=== PATIENT | male | born 1990 | race African-American/Black ===

== ENCOUNTER 2017-01-07 14:08 | Emergency (ER) | payer SELFPAY ==
[~2017-01-07] VITALS: Ht 172.7 cm; Wt 70.0 kg
[2017-01-07] MEDS ORDERED: TETANUS, DIPHTHERIA, PERTUSSIS VAC/PF 0.5ML (>7YR OLD) IM ONE (14:45)
[2017-01-07] MEDS ORDERED: TRAMADOL 50MG TABLET PO ONE (14:45)
[2017-01-07] MEDS ORDERED: LIDOCAINE HCL/EPINEPHRINE 1%-EPI 1:100,000 50 ML VIAL INFIL ONE (15:45)
[2017-01-07] MEDS ORDERED: LIDOCAINE HCL 1%/EPI 1:200,000 30 ML VIAL ONE (15:51)
[2017-01-07] MEDS ORDERED: LIDOCAINE HCL/EPINEPHRINE 1%-EPI 1:100,000 20 ML VIAL INFIL ONE (16:00)
[2017-01-07 17:15] VITALS: BP 124/68
[2017-01-07] MEDS ORDERED: BACITRACIN ZINC OINT UDPKT TOP ONE (17:45)
== END 2017-01-07 18:36 | disposition home or self-care (01) ==
LOC: ER 14:34
DX: S81.812A Laceration without foreign body, left lower leg, initial encounter (principal); W18.39XA Other fall on same level, initial encounter; Y93.89 Activity, other specified; Y92.89 Other specified places as the place of occurrence of the external cause; Y99.8 Other external cause status
CPT/HCPCS: 12002; 73562; 73590; 90471; 90715; 99284; A4217; J3490; Z7610